=== PATIENT | female | born 2000 | race Hispanic/Latino ===

== ENCOUNTER 2023-01-07 14:57 | Emergency (ER) | payer OTHER, SELFPAY ==
[2023-01-07] MEDS ORDERED: Acetaminophen 500 MG TAB ONE (15:26)
[2023-01-07 15:38] LABS: #Basophils 0.1 10x3/uL (0.0-0.2); #Eosinphils 0.1 10x3/uL (0.0-0.5); #Monocytes 1.3 10x3/uL (0.0-1.1); #Neutrophils 15.8 10x3/uL (1.5-8.4); %Basophils 0.3 % (0.0-2.0); %Eosinophils 0.3 % (0.0-6.0); %Lymphocytes 5.2 % (18.0-47.0); %Monocytes 7.2 % (0.0-10.0); %Neutrophils 85.4 % (40.0-75.0); Hemoglobin 13.5 g/dL (12.0-15.5); Mean Corpuscular HGB CONC 34.4 g/dL (32.0-36.0); Mean Corpuscular Hemoglobin 29.3 pg (27.0-33.0); Mean Platelet Volume 10.1 fl (7.4-10.4); Platelet Count 282 10x3/uL (150-450); RBC Distribution Width 13.2 % (11.5-14.5); Red Blood Cell (RBC) Count 4.61 10x6/uL (3.90-5.03); White Blood Cell (WBC) Count 18.5 10x3/uL (3.5-10.5)
[2023-01-07 15:50] LABS: ALT (SGPT) 21 U/L (8-55); AST (SGOT) 29 U/L (5-34); Albumin 3.5 g/dL (3.5-5.0); Alkaline Phosphatase 170 U/L (40-110); Anion Gap 15 mmol/L (10-20); BUN (Urea Nitrogen) 4 mg/dL (7.0-18.7); Bilirubin, Total 0.9 mg/dL (0.2-1.2); Calc. Creatinine Clearance 0 mL/min (70-130); Calcium 8.9 mg/dL (7.8-10.44); Carbon Dioxide 20 mmol/L (22-29); Chloride 103 mmol/L (98-107); Estimated GFR 122; Globulin 3.3 g/dL (2.4-3.5); Glucose 85 mg/dL (70-105); Protein, Total 6.8 g/dL (6.0-8.3); Sodium 134 mmol/L (136-145)
[2023-01-07 16:53] LABS: SARS-CoV-2 NAA Rapid Test DETECTED (NotDetected)
[2023-01-07 17:16] LABS: Bilirubin Neg (Negative); Blood, Urine Negative (Negative); Clarity Clear (Clear); Glucose, Urine (Dipstick) Normal (Negative); Ketone, Urine 50 mg/dL (Negative); Leukocyte 500 (Negative); Nitrite Negative (Negative); Protein, Urine (Dipstick) Negative (Neg-Trace); Specific Gravity, Urine 1.005 (1.005-1.030); Urobilinogen Normal mg/dL (Less than 2); pH, Urine 6.5 (5.0-9.0)
[2023-01-07 17:24] LABS: Bacteria/HPF 3+ HPF (None Seen); RBC/HPF None Seen HPF (0-3)
== END 2023-01-07 18:12 | disposition home or self-care (01) ==
LOC: CSHERS 14:57
DX: U07.1 COVID-19 (principal); N39.0 Urinary tract infection, site not specified; Z20.822 Contact with and (suspected) exposure to COVID-19
CPT/HCPCS: 71045; 80053; 81003; 81015; 83605; 85025; 86140; 87081; 87086; 87430; 93005; 96360; 96361

== ENCOUNTER 2023-02-07 09:46 | Inpatient (IN) | payer MEDICAID, OTHER ==
[2023-02-07] MEDS ORDERED: Tranexamic Acid 1,000 MG in Sodium Chloride 0.9% 250 ML 250 ML IVPB PRN (09:53)
[2023-02-07] MEDS ORDERED: Butorphanol Tartrate 1 MG/ML VIAL SLOW IVP PRN (09:53)
[2023-02-07] MEDS ORDERED: Ondansetron PF 4 MG/2 ML Vial IVP PRN ×3 (09:53→21:50)
[2023-02-07] MEDS ORDERED: Carboprost 250 MCG/ML AMP IM PRN (09:53)
[2023-02-07] MEDS ORDERED: hydrALAZINE 20 MG/ML VIAL SLOW IVP PRN ×2 (09:53→21:50)
[2023-02-07] MEDS ORDERED: Diphenoxylate HCl/Atropine Tablet PO PRN (09:53)
[2023-02-07] MEDS ORDERED: Lidocaine 1% (PF) 30 ML VIAL SC PRN (09:53)
[2023-02-07] MEDS ORDERED: Promethazine HCl 25 MG/ML VIAL IM PRN ×3 (09:53→21:50)
[2023-02-07] MEDS ORDERED: Methylergonovine 0.2 MG/ML VIAL IM PRN (09:53)
[2023-02-07] MEDS ORDERED: Ibuprofen 800 MG TAB PO PRN (09:53)
[2023-02-07] MEDS ORDERED: Misoprostol 200 MCG TAB PR PRN (09:53)
[2023-02-07] MEDS ORDERED: HYDROcodone/Acetaminophen 5/325 mg Tablet PO PRN ×2 (09:53→21:50)
[2023-02-07] MEDS ORDERED: Acetaminophen 500 MG TAB PO PRN (09:53)
[2023-02-07] MEDS ORDERED: NS w/ Oxytocin 30 units 500 ML IV SCH ×2 (10:00)
[2023-02-07 10:27] VITALS: BMI 31.1
[2023-02-07] MEDS: Lactated Ringer's 1,000 ML IV SCH ×2 (10:41→22:28)
[2023-02-07 10:59] LABS: Hemoglobin 14.2 g/dL (12.0-15.5); Mean Corpuscular HGB CONC 32.8 g/dL (32.0-36.0); Mean Corpuscular Hemoglobin 28.3 pg (27.0-33.0); Mean Corpuscular Volume 86.3 fl (81.6-98.3); Mean Platelet Volume 10.3 fl (7.4-10.4); Platelet Count 364 10x3/uL (150-450); RBC Distribution Width 14.2 % (11.5-14.5); Red Blood Cell (RBC) Count 5.02 10x6/uL (3.90-5.03); White Blood Cell (WBC) Count 11.2 10x3/uL (3.5-10.5)
[2023-02-07 11:18] LABS: Syphilis Antibody Nonreactive (Nonreactive); Syphilis Antibody Index 0.05 S/CO (<1.00 Non-Reactive)
[2023-02-07 11:19] LABS: HBSAg Index 0.17 S/CO (0-0.99); Hep B Surf Ag Non-Reactive S/CO (NonReactive)
[2023-02-07 11:20] LABS: SARS-CoV-2 NAA Rapid Test Not Detected (NotDetected)
[2023-02-07] MEDS ORDERED: Fentanyl 2 mcg/Bup 0.1% Cadd 100 ML ONE (12:56)
[2023-02-07] MEDS ORDERED: Lidocaine 2% 10 ML INJ ONE (13:02)
[2023-02-07] MEDS ORDERED: Bupivacaine 0.25% HCL 30 ML VIAL ONE (13:02)
[2023-02-07] MEDS ORDERED: Bupivacaine/Epinephrine 0.25% 30 ML VIAL ONE (13:02)
[2023-02-07] MEDS ORDERED: Lactated Ringer's 500 ML IV PRN (14:19)
[2023-02-07] MEDS ORDERED: diphenhydrAMINE 50 MG/ML VIAL IVP PRN (14:19)
[2023-02-07] MEDS ORDERED: ePHEDrine Sulfate 50 MG/10 ML VIAL SLOW IVP PRN (14:19)
[2023-02-07] MEDS ORDERED: Moisturizing Cream (Eucerin) 113 GM JAR TOP PRN (14:19)
[2023-02-07] MEDS ORDERED: Acetaminophen 325 MG TAB PO PRN (14:19)
[2023-02-07] MEDS ORDERED: Naloxone HCl 0.4 mg/ml Vial IVP PRN ×2 (14:19)
[2023-02-07] MEDS ORDERED: Fentanyl 2 mcg/Bupivacaine 0.1% Cassette 100 ML EPIDURAL SCH (14:30)
[2023-02-07] MEDS ORDERED: Communication Order-Pharmacy FS SCH (14:30)
[2023-02-07] MEDS ORDERED: Bisacodyl 10 MG SUPP PR PRN (21:50)
[2023-02-07] MEDS ORDERED: Milk Of Magnesia 30 ML UDCUP PO PRN (21:50)
[2023-02-07] MEDS ORDERED: Boostrix 0.5 ML (Tdap) VIAL (>/=7 yrs of age) IM ONE (21:50)
[2023-02-07] MEDS ORDERED: diphenhydrAMINE 25 MG CAP PO PRN (21:50)
[2023-02-07] MEDS ORDERED: Docusate 100 MG CAP PO SCH (22:00)
[2023-02-07] MEDS: Ibuprofen 800 MG TAB PO SCH (22:44)
[2023-02-08] MEDS: Ibuprofen 800 MG TAB PO SCH ×3 (05:21→21:17)
[2023-02-08] MEDS: Ferrous Sulfate 325 MG TAB PO SCH ×2 (09:16→17:04)
[2023-02-08] MEDS: Prenatal Vitamin 1 TAB PO SCH (09:25)
[2023-02-08] MEDS: Docusate 100 MG CAP PO SCH ×2 (09:25→21:17)
[2023-02-09] MEDS: Ibuprofen 800 MG TAB PO SCH ×2 (05:49→13:02)
[2023-02-09] MEDS: Ferrous Sulfate 325 MG TAB PO SCH ×2 (08:01→17:11)
[2023-02-09] MEDS: Docusate 100 MG CAP PO SCH (08:01)
[2023-02-09] MEDS: Prenatal Vitamin 1 TAB PO SCH (08:02)
[2023-02-09 08:10] VITALS: BP 100/61; TEMP 99.7
[2023-02-09] MEDS ORDERED: Measles/Mumps/Rubella 10 MCG/0.5 ML VIAL SC ONE (17:45)
== END 2023-02-09 18:30 | disposition home or self-care (01) | DRG 807 ==
LOC: CSHLD 09:46 → CSHPP 22:00
PROVIDERS: ADMIT Family Medicine; ATTEND Family Medicine
PROC: 10E0XZZ Delivery of Products of Conception, External Approach (ICD-10-PCS; principal; 2023-02-07)
PROC: 3E0334Z Introduction of Serum, Toxoid and Vaccine into Peripheral Vein, Percutaneous Approach (ICD-10-PCS; 2023-02-07)
DX: O63.9 Long labor, unspecified (principal); Z37.0 Single live birth; O69.81X0 Labor and delivery complicated by cord around neck, without compression, not applicable or unspecified; Z3A.40 40 weeks gestation of pregnancy; Z20.822 Contact with and (suspected) exposure to COVID-19; O26.893 Other specified pregnancy related conditions, third trimester; Z67.41 Type O blood, Rh negative; Z79.899 Other long term (current) drug therapy
CPT/HCPCS: 36415; 51702; 85027; 85461; 86780; 86850; 86900; 86901; 87340; 90384; 90707; 96372; J2590; J7120; S0020; U0002